=== PATIENT | male | born 1950 | race Caucasian/White ===

== ENCOUNTER 2018-03-25 17:22 | Emergency (ER) | payer MEDICARE ==
[~2018-03-25] VITALS: Ht 170.2 cm; Wt 75.0 kg
[2018-03-25 17:40] VITALS: BP 165/74; PULSE 63; RESP 16; TEMP 97.3; O2SAT 98
[2018-03-25] MEDS ORDERED: PHEN-414 PO (17:46)
[2018-03-25] MEDS ORDERED: KEPP750T PO (17:46)
[2018-03-25] MEDS ORDERED: LAMO150 PO (17:46)
[2018-03-25] MEDS ORDERED: ZONI100C2 PO ×2 (17:46)
[2018-03-25] MEDS ORDERED: ATOR20TA15 PO (17:46)
[2018-03-25] MEDS ORDERED: [UNRECOGNIZED DRUG - CODE] PO (17:46)
[2018-03-25 18:30] VITALS: BP 133/60; PULSE 81; RESP 18; TEMP 98.9; O2SAT 100
[2018-03-25 18:33] LABS: AUTOMATED NEUTROPHIL # 11.5 TH/MM3 (1.8-7.7); BASOPHIL % 0.3 % (0.0-2.0); HEMATOCRIT 43.8 % (39.0-51.0); HEMOGLOBIN 14.4 GM/DL (13.0-17.0); LYMPH % 8.4 % (9.0-44.0); LYMPHOCYTE # 1.1 TH/MM3 (1.0-4.8); MEAN CELL VOLUME 90.1 FL (80.0-100.0); MEAN CORPUSCULAR HEMOGLOBIN 29.5 PG (27.0-34.0); MEAN CORPUSCULAR HGB CONC 32.8 % (32.0-36.0); MEAN PLATELET VOLUME 6.9 FL (7.0-11.0); MONO % 5.9 % (0.0-8.0); MONOCYTE # 0.8 TH/MM3 (0-0.9); NEUT % 85.4 % (16.0-70.0); PLATELET COUNT 332 TH/MM3 (150-450); RED BLOOD COUNT 4.86 MIL/MM3 (4.50-5.90); RED CELL DISTRIBUTION WIDTH 14.1 % (11.6-17.2); WHITE BLOOD COUNT 13.5 TH/MM3 (4.0-11.0)
[2018-03-25 18:44] LABS: ALBUMIN 4.3 GM/DL (3.4-5.0); AST (GOT) 28 U/L (15-37); BLOOD UREA NITROGEN 21 MG/DL (7-18); CALCIUM 9.3 MG/DL (8.5-10.1); CHLORIDE 109 MEQ/L (98-107); CREATININE 1.05 MG/DL (0.60-1.30); GLOMERULAR FILTRATION RATE 71 ML/MIN (>89); GLUCOSE,RANDOM 92 MG/DL (74-106); SODIUM (NA) 139 MEQ/L (136-145)
[2018-03-25 18:45] LABS: ALT (GPT) 44 U/L (12-78)
[2018-03-25 18:47] LABS: ALKALINE PHOSPHATASE 193 U/L (45-117); TOTAL BILIRUBIN ADULT 0.3 MG/DL (0.2-1.0); TOTAL PROTEIN 8.5 GM/DL (6.4-8.2)
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
[2018-03-25 21:21] LABS: BILIRUBIN, URINE NEG (NEG); BLOOD, URINE NEG (NEG); GLUCOSE,URINE NEG (NEG); KETONE, URINE NEG (NEG); MUCUS URINE FEW /lpf (OCC); NITRITE,URINE NEG (NEG); URINE COLOR YELLOW (YELLW/STRAW); URINE LEUKOCYTE ESTERASE NEG (NEG)
[2018-03-25 22:00] VITALS: BP 117/68; PULSE 73; RESP 18; O2SAT 97
[2018-03-25] MEDS ORDERED: ATORVASTATIN 20 MG TAB PO ONE (23:00)
[2018-03-25] MEDS ORDERED: ZONISAMIDE 100 MG CAP PO ONE (23:00)
[2018-03-25] MEDS ORDERED: levETIRAcetam 500 MG TAB PO ONE (23:00)
[2018-03-25] MEDS ORDERED: lamoTRIgine 100 MG TAB PO ONE (23:00)
[2018-03-25] MEDS ORDERED: levETIRAcetam 250 MG TAB PO ONE (23:00)
[2018-03-25] MEDS ORDERED: PHENobarbital 32.4 MG TAB PO ONE (23:00)
[2018-03-26 02:30] VITALS: BP 114/59; PULSE 55; RESP 17; O2SAT 98
[2018-03-26 06:44] VITALS: BP 100/54; PULSE 54; RESP 16; O2SAT 99
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
--- NOTE | 2018-03-26 13:51 | PD ---
Physical Exam Time Seen by Provider: 13:48 CRISTIANO Francis has evaluated the patient, lifted Bustos act and cleared the patient for discharge. He is going to follow-up in [place] for continued care and evaluation. Data Data Last Documented VS Vital Signs Date Time Temp Pulse Resp B/P (MAP) Pulse Ox O2 Delivery O2 Flow Rate FiO2 03/26/18 06:44 54 16 100/54 (69) 99 Room Air 03/25/18 18:30 98.9 Orders Orders Complete Blood Count With Diff (03/25/18 17:47) Comprehensive Metabolic Panel (03/25/18 17:47) Urinalysis - C+S If Indicated (03/25/18 17:47) Psych Screen (03/25/18 17:47) Phenobarbital (03/25/18 17:47) Drug Screen, Random Urine (03/25/18 17:47) Alcohol (Ethanol) (03/25/18 17:47) Levetiracetam (03/25/18 17:47) Atorvastatin (Lipitor) (03/25/18 23:00) Lamotrigine (Lamictal) (03/25/18 23:00) Phenobarbital (Phenobarbital) (03/25/18 23:00) Zonisamide (Zonegran) (03/25/18 23:00) Levetiracetam (Keppra) (03/25/18 23:00) Diet Regular Basic (03/26/18 Breakfast) Diet Regular Basic (03/26/18 Lunch) Labs Laboratory Tests Test 03/25/18 18:07 03/25/18 19:30 03/25/18 23:20 White Blood Count 13.5 TH/MM3 Red Blood Count 4.86 MIL/MM3 Hemoglobin 14.4 GM/DL Hematocrit 43.8 % Mean Corpuscular Volume 90.1 FL Mean Corpuscular Hemoglobin 29.5 PG Mean Corpuscular Hemoglobin Concent 32.8 % Red Cell Distribution Width 14.1 % Platelet Count 332 TH/MM3 Mean Platelet Volume 6.9 FL Neutrophils (%) (Auto) 85.4 % Lymphocytes (%) (Auto) 8.4 % Monocytes (%) (Auto) 5.9 % Eosinophils (%) (Auto) 0.0 % Basophils (%) (Auto) 0.3 % Neutrophils # (Auto) 11.5 TH/MM3 Lymphocytes # (Auto) 1.1 TH/MM3 Monocytes # (Auto) 0.8 TH/MM3 Eosinophils # (Auto) 0.0 TH/MM3 Basophils # (Auto) 0.0 TH/MM3 CBC Comment DIFF FINAL Differential Comment Blood Urea Nitrogen 21 MG/DL Creatinine 1.05 MG/DL Random Glucose 92 MG/DL Total Protein 8.5 GM/DL Albumin 4.3 GM/DL Calcium Level 9.3 MG/DL Alkaline Phosphatase 193 U/L Aspartate Amino Transf (AST/SGOT) 28 U/L Alanine Aminotransferase (ALT/SGPT) 44 U/L Total Bilirubin 0.3 MG/DL Sodium Level 139 MEQ/L Potassium Level 3.9 MEQ/L Chloride Level 109 MEQ/L Carbon Dioxide Level 19.0 MEQ/L Anion Gap 11 MEQ/L Estimat Glomerular Filtration Rate 71 ML/MIN Phenobarbital Level 15.6 MCG/ML Ethyl Alcohol Level LESS THAN 3 MG/DL Urine Color YELLOW Urine Turbidity CLEAR Urine pH 6.0 Urine Specific [place] 1.022 Urine Protein NEG mg/dL Urine Glucose (UA) NEG mg/dL Urine Ketones NEG mg/dL Urine Occult Blood NEG Urine Nitrite NEG Urine Bilirubin NEG Urine Urobilinogen LESS THAN 2.0 MG/DL Urine Leukocyte Esterase NEG Urine RBC LESS THAN 1 /hpf Urine WBC LESS THAN 1 /hpf Urine Mucus FEW /lpf Microscopic Urinalysis Comment CULT NOT INDICATED Urine Opiates Screen NEG Urine Barbiturates Screen POS Urine Amphetamines Screen NEG Urine Benzodiazepines Screen NEG Urine Cocaine Screen NEG Urine Cannabinoids Screen NEG MDM Supervised Visit with MARY: No Narrative Course CRISTIANO Valentin has evaluated the patient, lifted Bustos daxa and cleared the patient for discharge. He is going to follow-up in [place] for continued care and evaluation. Patient contracts safety. Denies suicidal or homicidal ideations. Patient will be provided community resource packet to [facility] for follow-up. Has friends and family for support. Patient was medically cleared by alternate provider prior to psych screening. Patient has been evaluated by psychiatry and and is now cleared for discharge. Diagnosis Primary Impression: Adjustment disorder Qualified Codes: F43.25 - Adjustment disorder with mixed disturbance of emotions and conduct Referrals: [facility] (Out patient) [facility] Primary Care Physician Psychiatrist Katarzyna FUENTES Behavioral Patient Instructions: General Instructions, Mood Disorders (ED) Additional Instruction: Contract safety to your self and others Follow-up with psychiatry Follow-up with primary care provider Follow-up with Nii Porras/[facility] Return to the emergency department immediately with worsening of symptoms Med/Other Pt SpecificInfo: No Change to Meds, No Meds Exist/No RX given Disposition: 01 DISCHARGE HOME Condition: Stable Zaida Benavides Mar 26, 2018 13:51
[2018-03-26] MEDS ORDERED: ZONISAMIDE 100 MG CAP PO ONE (14:00)
[2018-03-26] MEDS ORDERED: levETIRAcetam 500 MG TAB PO ONE (14:00)
[2018-03-26] MEDS ORDERED: PHENobarbital 32.4 MG TAB PO ONE (14:00)
== END 2018-03-26 15:08 | disposition home or self-care (01) ==
LOC: NEDAMB 17:22 → NEPJ 03-26 15:08
DX: F43.25 Adjustment disorder with mixed disturbance of emotions and conduct (principal); G40.909 Epilepsy, unspecified, not intractable, without status epilepticus; Z79.899 Other long term (current) drug therapy
CPT/HCPCS: 80053; 80177; 80184; 80307; 81001; 85025; 99283